=== PATIENT | male | born 1935 | race Caucasian/White ===

== ENCOUNTER 2017-04-11 08:53 | Day surgery (SDC) | payer MEDICARE ==
[2017-03-31 08:43] VITALS: BMI 35.6
[~2017-04-11 08:53] MED LIST: LACTATED RINGERS 1,000 ML IV SCH; LIDOCAINE 1% 20 ML VIAL (10MG/ML) FOR IV START INTRADERMA PRN; ONDANSETRON 4 MG/2 ML VIAL IVP ONE
[2017-04-11] MEDS: CYCLOPENTOLATE 1% OPHTH SOLN 2 ML BTL OP ONE ×3 (09:46→10:02)
[2017-04-11] MEDS: FLURBIPROFEN 0.03% OPHTH DROPS 2.5 ML BTL OP ONE ×3 (09:49→10:05)
[2017-04-11] MEDS: PHENYLEPHRINE 10% OPHTH DROPS 5 ML BTL OP ONE ×2 (09:51→10:08)
[2017-04-11 10:01] LABS: Glucose,Whole Blood 163 mg/dL (75-99)
[2017-04-11 10:05] VITALS: RESP 18; TEMP 97.7
[2017-04-11] MEDS ORDERED: EPINEPHrine (PF) 0.5 ML in BALANCED SALT IRRIG SOLN COMB2 500 ML IRRIGATION ONE (10:38)
[2017-04-11] MEDS ORDERED: PROPOFOL 10 MG/ML 20 ML VIAL IV ONE (10:38)
[2017-04-11] MEDS ORDERED: HYALURONATE SODIUM INTRAOCULAR 1 EACH SYRINGE (10MG/ML) INTRAOCULA ONE (10:46)
[2017-04-11] MEDS ORDERED: BALANCED SALT IRRIG SOLN COMB2 15 ML IRRIG.SOLN INTRAOCULA ONE (10:46)
[2017-04-11] MEDS ORDERED: TETRACAINE 0.5% OPHTH (PF) DROPS 4 ML BTL RIGHT EYE ONE (10:47)
--- NOTE | 2017-04-11 10:58 | P.OP ---
Date of Procedure: 04/11/17 Procedure(s) Performed: PREOPERATIVE DIAGNOSIS: Cataract, right eye. POSTOPERATIVE DIAGNOSIS: Cataract, right eye. OPERATION: Phacoemulsification cataract, right eye. DESCRIPTION OF PROCEDURE: The patient was taken to the preoperative holding area. Intravenous Propofol was given so as to bring about adequate sedation. The following mixture was given for local anesthesia: 5 mL of 2% lidocaine, 5 mL of 0.75% Marcaine, and 1 mL of Wydase. Approximately 4 mL was injected in the retrobulbar space of the surgical eye. Additional 1 mL was then directed to the temporal area of the surgical eye. This was performed to allow adequate neurological block of the facial muscles. The patient was revived and then taken into the operative room. The patient was prepped and draped in the usual sterile manner for the operative eye. A lid speculum was put into position. The conjunctiva was resected back from the limbus in the 12 o'clock position. Bleeding was controlled with electrocautery. A #69 blade was then used and a half-thickness scleral incision approximately 1-mm posterior to the limbus was made on bare sclera. This was shelved in the clear cornea using a crescent knife. Next a 15-degree blade was used to make a stab incision at the 3 o' clock position at the corneolimbal interface. Keratome blade was then used and the superior wound was extended into the anterior chamber. Viscoelastic was injected into the anterior chamber and to maintain its form. Next, a cystotome was used and a continuous anterior capsulotomy was made without difficulty. Hydrodissection using a blunt cannula and BSS was performed. Phaco probe was then employed and a groove extending from 12 to 6 o'clock in the lens was created. A Jose wand was used through the stab incision so as to perform a divide and conquer technique. Next an irrigation aspiration probe was utilized and any residual cortex was removed from the eye. Again, viscoelastic was injected into the anterior chamber. An Kieran posterior chamber lens implant was placed in the cartridge and injected into the anterior chamber without difficulty. The [email or web address] hook was utilized to spin the lens into position and this was again performed without any difficulty. The irrigation and aspiration probe was again employed and any residual viscoelastic was removed from the eye. Then BSS was injected into the limbal stab incision and the anterior chamber re-inflated. The conjunctiva was reapproximated using electrocautery. One drop of 0.25% Timoptic was placed over the corneal along with TobraDex ophthalmic ointment. Two sterile patches and a Morley eye shield were taped into position. The patient was transported to the recovery room in stable condition. Pathology: none sent Condition: stable Disposition: same day
[2017-04-11 11:19] VITALS: BP 173/81; PULSE 72
[2017-04-11] MEDS ORDERED: BUPIVACAINE (PF) 0.75% 5 ML, HYALURONIDASE, HUMAN RECOMB 150 UNIT, LIDOCAINE 2% (PF) 10... MISCELLANE ONE ×3 (23:00)
[2017-04-11] MEDS ORDERED: GENTAMICIN/PREDNISOL AC OPHTH OINT 3.5GM OPHTHALMIC ONE (23:00)
[2017-04-11] MEDS ORDERED: TIMOLOL 0.5% OPHTH SOLN (PF) 0.2 ML DROPERETTE OP ONE (23:00)
== END 2017-04-11 11:34 | disposition home or self-care (01) ==
LOC: OR 08:53
PROVIDERS: ATTEND Ophthalmology
DX: E11.36 Type 2 diabetes mellitus with diabetic cataract (principal); Z79.84 Long term (current) use of oral hypoglycemic drugs; I10 Essential (primary) hypertension; F17.200 Nicotine dependence, unspecified, uncomplicated; E07.9 Disorder of thyroid, unspecified; F41.9 Anxiety disorder, unspecified; Z79.899 Other long term (current) drug therapy
CPT/HCPCS: 66984; V2632; J3470; J2001; J0171; J2704

== ENCOUNTER 2021-09-06 14:00 | Inpatient (IN) | payer MEDICARE ==
--- NOTE | 2021-09-06 18:01 | ED ---
SOB HPI - General Chief Complaint: Shortness of Breath Stated Complaint: Fluid in Lungs Time Seen by Provider: 09/06/21 17:45 Source: patient, family, RN notes reviewed, old records reviewed Mode of arrival: ambulatory Limitations: no limitations - History of Present Illness Initial Comments: 85-year-old male presents to the emergency room with complaints of 3 weeks of worsening shortness of breath and intermittent chest tightness. Patient states that his shortness of breath gets worse with exertion, resolves with rest. He has a dry cough. Denies any fevers, no nausea vomiting or diarrhea. Denies any diaphoresis. States that he was seen at [facility] and then told to come to the emergency room for a right pleural effusion. He states he had EKG and blood work done at that time. Patient states that this has not happened to him before. He states he does take metformin and an antihypertensive. MD Complaint: shortness of breath, chest pain -: week(s) (3) Severity scale (1-10): 0 Quality: other (tightness) Consistency: intermittent Improves With: nothing Worsens With: exertion Associated Symptoms: chest pain (Intermittent) Treatments Prior to Arrival: other (Seen at [facility], EKG lab work and chest x-ray were completed he was directed to come here) - Related Data Home Oxygen Therapy: No Home Medications Medication Instructions Recorded Confirmed metFORMIN HCL [Glucophage] 1,000 mg PO BID 01/13/17 09/06/21 lisinopriL [Zestril] 5 mg PO DAILY 09/06/21 09/06/21 Allergies Allergy/AdvReac Type Severity Reaction Status Date / Time No Known Allergies Allergy Verified 09/06/21 21:21 Review of Systems ROS Statement: Those systems with pertinent positive or pertinent negative responses have been documented in the HPI. ROS Other: All systems not noted in ROS Statement are negative. Past Medical History Past Medical History: Cancer, Eye Disorder, Hypertension Additional Past Medical History / Comment(s): skin cancer on nose, cataract rt eye History of Any Multi-Drug Resistant Organisms: None Reported Past Surgical History: Cholecystectomy Additional Past Surgical History / Comment(s): colonoscopy Past Anesthesia/Blood Transfusion Reactions: No Reported Reaction Past Psychological History: No Psychological Hx Reported Smoking Status: Never smoker Past Alcohol Use History: Rare Past Drug Use History: None Reported - Past Family History Mother Family Medical History: Cancer General Exam Limitations: no limitations General appearance: alert, in no apparent distress Head exam: Present: atraumatic, normocephalic Eye exam: Absent: scleral icterus, conjunctival injection, periorbital swelling ENT exam: Present: mucous membranes moist Neck exam: Present: normal inspection, full ROM. Absent: tenderness, meningismus Respiratory exam: Present: decreased breath sounds (Diminished lung sounds on the right). Absent: respiratory distress, wheezes, rales, rhonchi, stridor, chest wall tenderness, accessory muscle use Cardiovascular Exam: Present: regular rate GI/Abdominal exam: Present: soft. Absent: tenderness, rigid Extremities exam: Present: normal capillary refill. Absent: tenderness, pedal edema, calf tenderness Back exam: Absent: tenderness, CVA tenderness (R), CVA tenderness (L), rash note d Neurological exam: Present: alert, oriented X3 Psychiatric exam: Present: normal affect, normal mood Skin exam: Present: warm, dry, normal color. Absent: cyanosis, diaphoretic, petechiae, pallor Course Vital Signs 09/06/21 09/06/21 14:09 20:17 Temperature 97.8 F 98.3 F Pulse Rate 82 79 Respiratory 18 19 Rate Blood Pressure 179/95 160/111 O2 Sat by Pulse 93 L 94 L Oximetry Medical Decision Making - Medical Decision Making Patient presents with 3 weeks of shortness of breath worse with exertion and occasional chest tightness. His pulse ox is 88% on room air upon arrival to the emergency room. He was placed on 2 L nasal cannula and oxygen saturation increased to 93%. There is minimal air movement on the right. Chest x-ray done at urgent care today showed a right-sided pleural effusion. Patient's labs show no evidence of leukocytosis. His d-dimer is elevated at 2.22. CT angiogram chest shows very large right pleural effusion. Extensive atelectasis in the right lung, with almost complete hydrothorax. No evidence of pulmonary embolism. No hilar masses or pericardial effusion. There is enlargement of the right thyroid lobe with large retrosternal goiter and tracheal deviation to the left side. Patient was also given multiple doses of hydralazine for hypertension. I did contact Dr. Rankin with pulmonology to discuss case. Patient will be admitted to the hospital. Patient is agreeable to this plan of care. - Lab Data Result diagrams: 09/06/21 18:24 09/06/21 18:24 Lab Results 09/06/21 09/06/21 09/06/21 Range/Units 18:24 18:24 18:24 WBC 7.0 (3.8-10.6) k/uL RBC 4.75 (4.30-5.90) m/uL Hgb 13.3 (13.0-17.5) gm/dL Hct 41.8 (39.0-53.0) % MCV 88.1 (80.0-100.0) fL MCH 27.9 (25.0-35.0) pg MCHC 31.7 (31.0-37.0) g/dL RDW 13.0 (11.5-15.5) % Plt Count 234 (150-450) k/uL MPV 7.6 Neutrophils % 72 % Lymphocytes % 16 % Monocytes % 7 % Eosinophils % 3 % Basophils % 2 % Neutrophils # 5.0 (1.3-7.7) k/uL Lymphocytes # 1.1 (1.0-4.8) k/uL Monocytes # 0.5 (0-1.0) k/uL Eosinophils # 0.2 (0-0.7) k/uL Basophils # 0.1 (0-0.2) k/uL PT 11.7 (9.0-12.0) sec INR 1.1 (<1.2) APTT 28.1 (22.0-30.0) sec D-Dimer 2.22 H (<0.60) mg/L FEU Sodium 135 L (137-145) mmol/L Potassium 4.6 (3.5-5.1) mmol/L Chloride 99 (98-107) mmol/L Carbon Dioxide 28 (22-30) mmol/L Anion Gap 8 mmol/L BUN 14 (9-20) mg/dL Creatinine 0.87 (0.66-1.25) mg/dL Est GFR (CKD-EPI)AfAm >90 (>60 ml/min/1.73 sqM) Est GFR (CKD-EPI)NonAf 80 (>60 ml/min/1.73 sqM) Glucose 114 H (74-99) mg/dL Plasma Lactic Acid [place] (0.7-2.0) mmol/L Calcium 8.5 (8.4-10.2) mg/dL Magnesium 1.9 (1.6-2.3) mg/dL Total Bilirubin 0.8 (0.2-1.3) mg/dL AST 29 (17-59) U/L ALT 13 (4-49) U/L Alkaline Phosphatase 60 (38-126) U/L Troponin I (0.000-0.034) ng/mL NT-Pro-B Natriuret Pep pg/mL Total Protein 7.8 (6.3-8.2) g/dL Albumin 4.3 (3.5-5.0) g/dL Coronavirus (PCR) (Not Detectd) 09/06/21 09/06/21 09/06/21 Range/Units 18:24 18:24 18:24 WBC (3.8-10.6) k/uL RBC (4.30-5.90) m/uL Hgb (13.0-17.5) gm/dL Hct (39.0-53.0) % MCV (80.0-100.0) fL MCH (25.0-35.0) pg MCHC (31.0-37.0) g/dL RDW (11.5-15.5) % Plt Count (150-450) k/uL MPV Neutrophils % % Lymphocytes % % Monocytes % % Eosinophils % % Basophils % % Neutrophils # (1.3-7.7) k/uL Lymphocytes # (1.0-4.8) k/uL Monocytes # (0-1.0) k/uL Eosinophils # (0-0.7) k/uL Basophils # (0-0.2) k/uL PT (9.0-12.0) sec INR (<1.2) APTT (22.0-30.0) sec D-Dimer (<0.60) mg/L FEU Sodium (137-145) mmol/L Potassium (3.5-5.1) mmol/L Chloride (98-107) mmol/L Carbon Dioxide (22-30) mmol/L Anion Gap mmol/L BUN (9-20) mg/dL Creatinine (0.66-1.25) mg/dL Est GFR (CKD-EPI)AfAm (>60 ml/min/1.73 sqM) Est GFR (CKD-EPI)NonAf (>60 ml/min/1.73 sqM) Glucose (74-99) mg/dL Plasma Lactic Acid [place] 1.1 (0.7-2.0) mmol/L Calcium (8.4-10.2) mg/dL Magnesium (1.6-2.3) mg/dL Total Bilirubin (0.2-1.3) mg/dL AST (17-59) U/L ALT (4-49) U/L Alkaline Phosphatase (38-126) U/L Troponin I <0.012 (0.000-0.034) ng/mL NT-Pro-B Natriuret Pep 174 pg/mL Total Protein (6.3-8.2) g/dL Albumin (3.5-5.0) g/dL Coronavirus (PCR) (Not Detectd) 09/06/21 Range/Units 19:18 WBC (3.8-10.6) k/uL RBC (4.30-5.90) m/uL Hgb (13.0-17.5) gm/dL Hct (39.0-53.0) % MCV (80.0-100.0) fL MCH (25.0-35.0) pg MCHC (31.0-37.0) g/dL RDW (11.5-15.5) % Plt Count (150-450) k/uL MPV Neutrophils % % Lymphocytes % % Monocytes % % Eosinophils % % Basophils % % Neutrophils # (1.3-7.7) k/uL Lymphocytes # (1.0-4.8) k/uL Monocytes # (0-1.0) k/uL Eosinophils # (0-0.7) k/uL Basophils # (0-0.2) k/uL PT (9.0-12.0) sec INR (<1.2) APTT (22.0-30.0) sec D-Dimer (<0.60) mg/L FEU Sodium (137-145) mmol/L Potassium (3.5-5.1) mmol/L Chloride (98-107) mmol/L Carbon Dioxide (22-30) mmol/L Anion Gap mmol/L BUN (9-20) mg/dL Creatinine (0.66-1.25) mg/dL Est GFR (CKD-EPI)AfAm (>60 ml/min/1.73 sqM) Est GFR (CKD-EPI)NonAf (>60 ml/min/1.73 sqM) Glucose (74-99) mg/dL Plasma Lactic Acid [place] (0.7-2.0) mmol/L Calcium (8.4-10.2) mg/dL Magnesium (1.6-2.3) mg/dL Total Bilirubin (0.2-1.3) mg/dL AST (17-59) U/L ALT (4-49) U/L Alkaline Phosphatase (38-126) U/L Troponin I (0.000-0.034) ng/mL NT-Pro-B Natriuret Pep pg/mL Total Protein (6.3-8.2) g/dL Albumin (3.5-5.0) g/dL Coronavirus (PCR) Not Detected (Not Detectd) - EKG Data EKG shows normal: sinus rhythm (Sinus rhythm with first-degree block [place] interval 0.239, QRS 0.91, QTC 0.423; ventricular rate of 72) Disposition Clinical Impression: Pleural effusion, Goiter, Elevated d-dimer, Hypoxia, Hypertension Disposition: ADMITTED IP TO THIS [facility] Decision Date: 09/06/21 Decision Time: 20:37
[2021-09-06] MEDS ORDERED: FUROSEMIDE 10 MG/ML 4 ML VIAL IV STA (18:17)
[2021-09-06 18:52] LABS: Basophils # (A) 0.1 k/uL (0-0.2); Basophils % (A) 2 %; Eosinophils # (A) 0.2 k/uL (0-0.7); Eosinophils % (A) 3 %; HCT 41.8 % (39.0-53.0); HGB 13.3 gm/dL (13.0-17.5); Lymphocytes # (A) 1.1 k/uL (1.0-4.8); Lymphocytes % (A) 16 %; MCH 27.9 pg (25.0-35.0); MCHC 31.7 g/dL (31.0-37.0); MCV 88.1 fL (80.0-100.0); Mean Platelet Volume 7.6; Monocytes # (A) 0.5 k/uL (0-1.0); Monocytes % (A) 7 %; Neutrophils % (A) 72 %; Platelet Count 234 k/uL (150-450); RBC 4.75 m/uL (4.30-5.90)
[2021-09-06 19:02] LABS: ALT 13 U/L (4-49); African American GFR (CKD) >90 (>60 ml/min/1.73 sqM); Albumin 4.3 g/dL (3.5-5.0); Anion Gap 8 mmol/L; Blood Urea Nitrogen 14 mg/dL (9-20); Calcium 8.5 mg/dL (8.4-10.2); Carbon Dioxide 28 mmol/L (22-30); Chloride 99 mmol/L (98-107); Glucose 114 mg/dL (74-99); Non-African American GFR(CKD) 80 (>60 ml/min/1.73 sqM); Sodium 135 mmol/L (137-145); Total Bilirubin 0.8 mg/dL (0.2-1.3); Total Protein 7.8 g/dL (6.3-8.2)
[2021-09-06 19:05] LABS: INR 1.1 (<1.2); Partial Thromboplastin Time 28.1 sec (22.0-30.0); Prothrombin Time 11.7 sec (9.0-12.0)
[2021-09-06 19:18] LABS: AST 29 U/L (17-59); Alkaline Phosphatase 60 U/L (38-126); Magnesium 1.9 mg/dL (1.6-2.3); Potassium 4.6 mmol/L (3.5-5.1)
--- NOTE | 2021-09-06 20:13 | CT ---
EXAMINATION TYPE: CT chest angio for PE DATE OF EXAM: 09/06/2021 COMPARISON: None HISTORY: SOB CT DLP: 607.2 mGycm Automated exposure control for dose reduction was used. CONTRAST: Performed with IV Contrast, patient injected with 100 mL of Isovue 370. Images obtained from the thoracic inlet to the diaphragm with IV contrast. There are 3-D post process ed images. There is a very large right pleural effusion. There is extensive atelectasis in the right lung. There is enlargement of the right thyroid lobe with heterogeneous density. No mediastinal adenopathy. Ther e are no hilar masses. Heart is not grossly enlarged. No pericardial effusion. The left lung is fairly clear. Thoracic aorta is intact. No aneurysm or dissection. There is no evidence of filling defect in the pulmonary arteries. The thoracic spine is intact. No compression fracture. The sternum is intact. IMPRESSION: Very large right pleural effusion with significant atelectasis of the right lung. There is almost com plete hydrothorax. Large retrosternal goiter with tracheal deviation to the left side. No evidence of pulmonary embolism.
[2021-09-06] MEDS ORDERED: hydrALAZINE HCL 20 MG/ML 1 ML VIAL IVP STA ×2 (20:34→21:58)
[2021-09-06] MEDS ORDERED: NALOXONE 0.4 MG/ML 1 ML VIAL IV PRN (20:57)
[2021-09-06] MEDS ORDERED: ACETAMINOPHEN TAB 325 MG TAB PO PRN (21:02)
[2021-09-06] MEDS ORDERED: SODIUM CHLORIDE 0.9% 1,000 ML IV SCH (21:15)
[2021-09-06] MEDS ORDERED: metFORMIN 500 MG TAB PO SCH (22:00)
[2021-09-07] MEDS ORDERED: hydrALAZINE HCL 25 MG TAB PO ONE (03:00)
--- NOTE | 2021-09-07 03:03 | P.HPIM ---
History of Present Illness H&P Date: 09/06/21 The patient is an 85-year-old male with a PMH of hypertension and type II DM who presents to the emergency room with complaints of gradually worsening dyspnea on exertion. The patient reports that over the past 3 weeks, he has noticed significantly diminishing exercise tolerance. He reports being very active at baseline, cutting firewood and walking for several hours on a daily basis, but states that over the past 3 weeks, he is unable to perform the above activities as he gets winded quickly. He also reports dysphagia during this time, with feeling of food bolus stuck in his throat. Reports having lost 6 pounds of weight in the last few months intentionally. Denied experiencing chest pain, nausea, vomiting, diaphoresis, cough, fever, chills. EKG in the emergency room revealed sinus rhythm with first-degree AV block with no ST/T-wave changes noted as reviewed by me. Chest CTA revealed a very large right-sided pleural effusion with significant atelectasis of the right lung with an almost complete hydrothorax as well as a large retrosternal goiter with tracheal deviation to the left side with no evidence of PE. Patient denied any history of thyroid issues. Patient is a lifelong nonsmoker. Review of systems: Pertinent positives and negatives as discussed in HPI, a complete review of systems was performed and all other systems are negative. Physical examination: General: non toxic, no distress, appears at stated age, obese Derm: no unusual rashes/lesions, warm Head: atraumatic, normocephalic, symmetric Eyes: EOMI, no lid lag, anicteric sclera, pupils equal round reactive to light ENT: Nose and ears atraumatic Neck: No cervical lymphadenopathy, minimal tracheal deviation of the left, no large palpable thyroid nodules appreciated, supple Mouth: no lip lesion, mucus membranes moist Cardiovascular: S1S2 reg, no murmur, positive dorsalis pedis pulse bilateral, no edema Lungs: Severely diminished right-sided lung sounds, left lung clear to auscultation with no wheezing, no accessory muscle use Abdominal: soft, nontender to palpation, no guarding Ext: muscle strength 5 out of 5 in all 4 extremities grossly, no gross muscle atrophy, no contractures, Neuro: CN II-XI grossly intact, no gross focal neuro deficits Psych: Alert, oriented, appropriate affect Assessment/plan Shortness of breath suspected secondary to large right-sided pleural effusion -Pulmonary consulted for diagnostic and therapeutic thoracentesis Nodular goiter with left-sided tracheal deviation and mild dysphagia -Obtain thyroid studies and thyroid US -Consider thyroid uptake studies if euthyroid -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 Chronic conditions: Type II DM, hypertension -Insulin sliding scale blood glucose monitoring -Continue with home antihypertensives DVT prophylaxis -Lovenox The patient is admitted with an anticipated greater than 2 midnight stay for evaluation of CODE STATUS: Full Code Discussed with: Patient Anticipated discharge date: 09/[address]: Home Past Medical History Past Medical History: Cancer, Eye Disorder, Hypertension Additional Past Medical History / Comment(s): skin cancer on nose, cataract rt eye History of Any Multi-Drug Resistant Organisms: None Reported Past Surgical History: Cholecystectomy Additional Past Surgical History / Comment(s): colonoscopy Past Anesthesia/Blood Transfusion Reactions: No Reported Reaction Past Psychological History: No Psychological Hx Reported Smoking Status: Never smoker Past Alcohol Use History: Rare Past Drug Use History: None Reported - Past Family History Mother Family Medical History: Cancer Medications and Allergies Home Medications Medication Instructions Recorded Confirmed Type metFORMIN HCL [Glucophage] 1,000 mg PO BID 01/13/17 09/06/21 History lisinopriL [Zestril] 5 mg PO DAILY 09/06/21 09/06/21 History Allergies Allergy/AdvReac Type Severity Reaction Status Date / Time No Known Allergies Allergy Verified 09/06/21 21:21 Physical Exam Vitals: Vital Signs Temp Pulse Resp BP Pulse Ox 09/06/21 23:00 79 20 161/76 96 09/06/21 22:42 75 22 181/82 98 09/06/21 21:58 75 20 188/100 97 09/06/21 20:17 98.3 F 79 19 160/111 94 L 09/06/21 14:09 97.8 F 82 18 179/95 93 L Intake and Output 09/06/21 09/06/21 09/07/21 14:59 22:59 06:59 Other: Weight 115.212 kg Results CBC & Chem 7: 09/06/21 18:24 09/06/21 18:24 Labs: Abnormal Lab Results - Last 24 Hours (Table) 09/06/21 09/06/21 Range/Units 18:24 18:24 D-Dimer 2.22 H (<0.60) mg/L FEU Sodium 135 L (137-145) mmol/L Glucose 114 H (74-99) mg/dL
[2021-09-07] MEDS: INSULIN ASPART (NovoLOG) 100 UNIT/ML VIAL SQ SCH ×4 (08:37→20:37)
--- NOTE | 2021-09-07 08:41 | US ---
EXAMINATION TYPE: US thyroid st tissue head/neck DATE OF EXAM: 09/07/2021 COMPARISON: NONE CLINICAL HISTORY: Multinodular goiter. multinodular goiter GLAND SIZE: Right Lobe: 6.4 x 3.7 x 3.6 cm Overall Parenchyma: heterogenous Left Lobe: 3.9 x 1.3 x 1.2 cm Overall Parenchyma: homogeneous Isthmus Thickness: .5 cm NODULES 1 RIGHT: # of nodules measured on right: 1 1. 2.6 X 3.3 x 2.2 cm, lower medial, cystic or almost completely cystic, anechoic nodule, which is wider than tall, with smooth margins, without echogenic foci. Prior size: no prior LEFT: # of nodules measured on left: 0 ISTHMUS: # of nodules measured in the isthmus: 0 Bilateral neck scanned, no evidence of lymphadenopathy. IMPRESSION: Right and thyroid enlargement with heterogeneity can be associated with thyroiditis. 2.6 cm cyst righ t thyroid. 2017 ACR TI-RADS LEVEL: TR-RADS 1 - BENIGN: No FNA *Highest TI-RADS level nodule reported
[2021-09-07] MEDS: lisinopriL 5 MG TAB PO SCH (09:08)
[2021-09-07] MEDS: ENOXAPARIN 40 MG/0.4 ML SYRINGE SQ SCH (09:08)
--- NOTE | 2021-09-07 10:32 | P.CNPUL ---
History of Present Illness Consult date: 09/07/21 Requesting physician: Avril Ramos Reason for consult: dyspnea, hypoxemia, pleural effusion, abnormal CXR/CT Chief complaint: Shortness of breath 3 weeks. History of present illness: Pulmonary/critical care consultation, 09/07/2021. This is an 85-year-old male presents to the emergency room on September 06 complaining of 3 weeks worth of increasing and progressive shortness of breath. His shortness of breath is worse on exertion, better at rest. The patient really denies any chest pain or chest discomfort. There is no fever, or chills. He denies any abdominal pain, nausea, vomiting, or diarrhea. The patient does have a bit of a cough, but it is dry and nonproductive. The patient apparently was seen at [facility], had a CAT scan done, and was told to come here to be evaluated. The patient has a history of hypertension and diabetes. The patient denies ever having issues with shortness of breath, and or fluid on the lungs. The patient is a lifelong nontobacco user. He has a bit of skin cancer on his nose, and a right-sided cataract. Other than that, the patient is relatively healthy. CBC is completely normal. D-dimer is elevated at 2.2 to. Comprehensive metabolic profile, is mostly within normal range. Thyroid function, is normal, and testing for coronavirus was negative. CT angiogram showed no evidence of pulmonary embolism. There is a very large right pleural effusion, significant right lung atelectasis. 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 Review of Systems REVIEW OF SYSTEMS: CONSTITUTIONAL: [Negative.] NEUROLOGIC: [ Negative.] HEENT: [ Negative.] CARDIAC: [Negative.] PULMONARY: Progressive shortness of breath, and dry nonproductive cough. GI: [Negative.] : [Negative.] RHEUMATOLOGIC: [ Negative.] IMMUNOLOGIC: [ Negative.] ENDOCRINE: [Negative. ] DERMATOLOGIC: [Negative.] Past Medical History Past Medical History: Cancer, Diabetes Mellitus, Eye Disorder, Hypertension Additional Past Medical History / Comment(s): skin cancer on nose, cataract rt eye History of Any Multi-Drug Resistant Organisms: None Reported Past Surgical History: Appendectomy, Cholecystectomy Additional Past Surgical History / Comment(s): colonoscopy, cyst removal from back Past Anesthesia/Blood Transfusion Reactions: No Reported Reaction Past Psychological History: No Psychological Hx Reported Smoking Status: Never smoker Past Alcohol Use History: Rare Additional Past Alcohol Use History / Comment(s): smoked 30 years ago for a brief time Past Drug Use History: None Reported - Past Family History Mother Family Medical History: Cancer Medications and Allergies Home Medications Medication Instructions Recorded Confirmed Type metFORMIN HCL [Glucophage] 1,000 mg PO BID 01/13/17 09/06/21 History lisinopriL [Zestril] 5 mg PO DAILY 09/06/21 09/06/21 History Allergies Allergy/AdvReac Type Severity Reaction Status Date / Time No Known Allergies Allergy Verified 09/06/21 21:21 Physical Exam Osteopathic Statement: *. No significant issues noted on an osteopathic structural exam other than those noted in the History and Physical/Consult. Vitals: Vital Signs Temp Pulse Pulse Resp BP BP Pulse Ox 09/07/21 08:00 98.3 F 84 15 165/77 96 09/07/21 05:39 98 F 84 16 192/91 96 09/07/21 04:04 98.3 F 76 20 178/82 97 09/07/21 02:21 98.2 F 84 18 185/83 96 09/07/21 00:00 76 20 167/83 97 09/06/21 23:00 79 20 161/76 96 09/06/21 22:42 75 22 181/82 98 09/06/21 21:58 75 20 188/100 97 09/06/21 20:17 98.3 F 79 19 160/111 94 L 09/06/21 14:09 97.8 F 82 18 179/95 93 L Intake and Output 09/06/21 09/07/21 09/07/21 22:59 06:59 14:59 Intake Total 200 Balance 200 Intake: Oral 200 Other: Voiding Method Urinal # Voids 2 # Bowel Movements 1 Weight 115.212 kg No acute distress, oriented 3. No conversational dyspnea, or use of accessory muscles. HEENT examination is grossly unremarkable. Neck supple. Full range of motion. No adenopathy thyromegaly or neck vein distention. Cardiovascular examination reveals regular rhythm rate. S1-S2 normal. No S3 or S4. No discernible murmur noted. Heart rate 84 bpm. Lungs reveal diminished breath sounds on the right. Normal breath sounds on the left. No wheezes or rhonchi. No crackles. There is dullness on percussion throughout the entire right lung. Abdomen soft bowel sounds are heard. No masses or tenderness. Extremities are intact. No cyanosis clubbing or edema. Skin is without rash or lesion. Neurologic examination is brief but nonfocal. Results - Laboratory Findings CBC and BMP: 09/06/21 18:24 09/06/21 18:24 PT/INR, D-dimer PT 11.7 sec (9.0-12.0) 09/06/21 18:24 INR 1.1 (<1.2) 09/06/21 18:24 D-Dimer 2.22 mg/L FEU (<0.60) H 09/06/21 18:24 Abnormal lab findings: Abnormal Labs 09/06/21 09/06/21 18:24 18:24 D-Dimer 2.22 H Sodium 135 L Glucose 114 H - Diagnostic Findings Chest x-ray: image reviewed CT scan - chest: image reviewed Assessment and Plan Assessment: Large right pleural effusion. Shortness of breath, on exertion, secondary to large right-sided pleural effusion. Substernal goiter. History of hypertension. History of diabetes mellitus. Plan: Plan dated 09/07/2021. The patient will have a ultrasound of the right chest, with markings. We'll plan on doing a thoracentesis, by tomorrow if possible. Additional recommendations and suggestions are forthcoming. Prognosis is guarded. The patient is a lifelong nontobacco user. Other than some shortness of breath on exertion, the patient's not having much in the way of pulmonary complaints. Time with Patient: Greater than 30
--- NOTE | 2021-09-07 11:09 | US ---
EXAMINATION TYPE: US chest DATE OF EXAM: 09/07/2021 COMPARISON: None CLINICAL HISTORY: Right pleural effusion. TECHNIQUE: Targeted ultrasound of the posterior lower right hemithorax EXAM MEASUREMENTS: Right Pleural Effusion pocket size: 6.6 cm Right skin surface to fluid distance: 3.0 cm Right side marked for possible thoracentesis outside the dept. Pulmonologists are able to review the images in the patient?s EMR. IMPRESSIONS: Right pleural effusion
[2021-09-07 11:21] LABS: Glucose,Whole Blood 107 mg/dL (70-110)
--- NOTE | 2021-09-07 11:27 | P.PN ---
Subjective Progress Note Date: 09/07/21 Principal diagnosis: sob Still with sob. Can't lay on his left side. No fevers or chills. No pain. No n/v. Objective - Vital Signs Vital signs: Vital Signs Temp 98.3 F 09/07/21 08:00 Pulse 84 09/07/21 08:00 Resp 15 09/07/21 08:00 BP 165/77 09/07/21 08:00 Pulse Ox 96 09/07/21 08:00 FiO2 Intake & Output 09/06/21 09/07/21 09/07/21 18:59 06:59 18:59 Intake Total 200 Balance 200 Weight 115.212 kg 115.212 kg Intake: Oral 200 Other: Voiding Method Urinal # Voids 2 # Bowel Movements 1 - Exam Constitutional: No acute distress, conversant, pleasant Eyes:Anicteric sclerae, moist conjunctiva, no lid-lag, PERRLA, ENMT: Oropharynx clear, no erythema, exudates Neck: Supple, FROM, no masses, or JVD, No carotid bruits, No thyromegaly Lungs: abscent breath sounds on the right. normal respiratory effort, no accessory muscle use Cardiovascular: Heart regular in rate and rhythm, No murmurs, gallops, or rubs, No peripheral edema Abdominal: Soft, Nontender, no guarding, rebound or rigidity, Normoactive bowel sounds, No hepatomegaly, No splenomegaly, No palpable mass Skin: Normal temperature, tone, texture, turgor, no induration, No subcutaneous nodules, No rash, lesions, No ulcers Extremities: No digital cyanosis, No clubbing, Pedal pulses intact and symmetrical, Radial pulses intact and symmetrical, No calf tenderness Psychiatric: Alert and oriented to person, place and time, appropriate affect, intact judgement Neuro: Muscles Strength 5/5 in all 4 extremities, Sensation to light touch grossly present throughout, Cranial nerves II-XII grossly intact, no focal sensory deficits - Labs CBC & Chem 7: 09/06/21 18:24 09/06/21 18:24 Labs: Abnormal Lab Results - Last 24 Hours (Table) 09/06/21 09/06/21 Range/Units 18:24 18:24 D-Dimer 2.22 H (<0.60) mg/L FEU Sodium 135 L (137-145) mmol/L Glucose 114 H (74-99) mg/dL Assessment and Plan Plan: Shortness of breath suspected secondary to large right-sided pleural effusion -Pulmonary consulted for diagnostic and therapeutic thoracentesis, had U/s marking for thoracentesis Nodular goiter with left-sided tracheal deviation and mild dysphagia -Thyroid US showed right sided thyroid cyst and right thyroid enlargement. -Will likely need thyroid uptake outpatient as he is euthyroid -[employer] eval Chronic conditions: Type II DM, hypertension -Insulin sliding scale blood glucose monitoring -Continue with home antihypertensives DVT prophylaxis -Lovenox CODE STATUS: Full Code Discussed with: Patient Anticipated discharge date: 09/[address]: Home
[2021-09-07 16:17] LABS: Glucose,Whole Blood 126 mg/dL (70-110)
[2021-09-07 20:08] LABS: Glucose,Whole Blood 124 mg/dL (70-110)
[2021-09-08] MEDS ORDERED: hydrALAZINE HCL 25 MG TAB PO STA (02:54)
[2021-09-08] MEDS: INSULIN ASPART (NovoLOG) 100 UNIT/ML VIAL SQ SCH ×5 (07:03→22:15)
[2021-09-08 07:30] LABS: Glucose,Whole Blood 88 mg/dL (70-110)
[2021-09-08] MEDS: amLODIPine 10 MG TAB PO SCH (07:48)
[2021-09-08] MEDS: lisinopriL 5 MG TAB PO SCH (07:48)
[2021-09-08] MEDS: ENOXAPARIN 40 MG/0.4 ML SYRINGE SQ SCH (07:48)
--- NOTE | 2021-09-08 11:15 | XR ---
EXAMINATION TYPE: XR chest 1V portable DATE OF EXAM: 09/08/2021 COMPARISON: 09/06/21 HISTORY: Status post right-sided thoracentesis FINDINGS: No evidence for right-sided pneumothorax. Persistent but somewhat smaller right-sided pleural effusio n and probable underlying infiltrate and/or atelectasis. The left lung is clear. IMPRESSION: No evidence for right-sided pneumothorax in a patient who is status post thoracentesis.
[2021-09-08 11:18] LABS: Glucose,Whole Blood 143 mg/dL (70-110)
--- NOTE | 2021-09-08 12:47 | PCN ---
PROCEDURE NOTE PULMONARY/CRITICAL CARE PROCEDURE NOTE: Right-sided thoracentesis. PREOPERATIVE DIAGNOSIS: Right pleural effusion. POSTOP DIAGNOSIS: Right pleural effusion. OPERATORS: Dr. Rankin and Dr. Irby. Indication: Pleural effusion. A time-out was completed verifying correct patient, procedure, site, positioning , and implant (s) or special equipment if applicable. Ultrasound guidance was used and appropriate fluid pocket was identified and marked. Patient was positioned, prepped and draped in usual sterile fashion. Lidocaine was used to anesthetize the area. A Thoracentesis catheter was introduced into the pleural space and fluid was removed. Blood loss was none. A chest x-ray was ordered to evaluate for pneumothorax. Total Fluid Removed: 1.2 L Color of Fluid: Yellow brown Fluid was sent for appropriate laboratory tests. Patient tolerated the procedure well and there were no complications. 1.2 L fluid removed. The fluid was yellow brown in color. There was no immediate complication. Patient tolerated the procedure well. The fluid will be sent for analysis. The posterior right chest was marked by ultrasound. There was informed consent and universal time-out. MMODL / IJN: [id number] /
--- NOTE | 2021-09-08 12:56 | P.PN ---
Subjective Progress Note Date: 09/08/21 Principal diagnosis: sob Patient is feeling much better after the thoracentesis. 1.2 L taken out from the right chest. Breathing is easier. No pain. Objective - Vital Signs Vital signs: Vital Signs Temp 98 F 09/08/21 07:46 Pulse 80 09/08/21 07:46 Resp 09/08/21 07:46 BP 175/93 09/08/21 07:46 Pulse Ox 96 09/08/21 07:46 FiO2 09/07/21 19:22 Intake & Output 09/07/21 09/08/21 09/08/21 18:59 06:59 18:59 Output Total 100 250 250 Balance -100 -250 -250 Output: Urine 100 250 250 Other: Voiding Method Urinal # Voids 2 - Exam Constitutional: No acute distress, conversant, pleasant Eyes:Anicteric sclerae, moist conjunctiva, no lid-lag, PERRLA, ENMT: Oropharynx clear, no erythema, exudates Neck: Supple, FROM, no masses, or JVD, No carotid bruits, No thyromegaly Lungs: abscent breath sounds on the right. normal respiratory effort, no accessory muscle use Cardiovascular: Heart regular in rate and rhythm, No murmurs, gallops, or rubs, No peripheral edema Abdominal: Soft, Nontender, no guarding, rebound or rigidity, Normoactive bowel sounds, No hepatomegaly, No splenomegaly, No palpable mass Skin: Normal temperature, tone, texture, turgor, no induration, No subcutaneous nodules, No rash, lesions, No ulcers Extremities: No digital cyanosis, No clubbing, Pedal pulses intact and symmetrical, Radial pulses intact and symmetrical, No calf tenderness Psychiatric: Alert and oriented to person, place and time, appropriate affect, intact judgement Neuro: Muscles Strength 5/5 in all 4 extremities, Sensation to light touch grossly present throughout, Cranial nerves II-XII grossly intact, no focal se nsory deficits - Labs CBC & Chem 7: 09/06/21 18:24 09/06/21 18:24 Labs: Abnormal Lab Results - Last 24 Hours (Table) 09/07/21 09/07/21 09/08/21 Range/Units 16:16 19:55 11:17 POC Glucose (mg/dL) 126 H 124 H 143 H (70-110) mg/dL Assessment and Plan Plan: Shortness of breath suspected secondary to large right-sided pleural effusion -Pulmonary consulted, he is s/p large volume thoracentesis, which resulted in removal of 1.2 L of fluids. -Awaiting fluid analysis -Planning bronchoscopy. Nodular goiter with left-sided tracheal deviation and mild dysphagia -Thyroid US showed right sided thyroid cyst and right thyroid enlargement. -Will likely need thyroid uptake outpatient as he is euthyroid Chronic conditions: Type II DM, hypertension -Insulin sliding scale blood glucose monitoring -Continue with home antihypertensives DVT prophylaxis -Lovenox CODE STATUS: Full Code Discussed with: Patient Anticipated discharge date: pending course Anticipated discharge place: Home
--- NOTE | 2021-09-08 15:02 | P.PN ---
Subjective Progress Note Date: 09/08/21 Principal diagnosis: Right pleural effusion This is an 85-year-old male presents to the emergency room on September 06 complaining of 3 weeks worth of increasing and progressive shortness of breath. His shortness of breath is worse on exertion, better at rest. The patient really denies any chest pain or chest discomfort. There is no fever, or chills. He denies any abdominal pain, nausea, vomiting, or diarrhea. The patient does have a bit of a cough, but it is dry and nonproductive. The patient apparently was seen at [facility], had a CAT scan done, and was told to come here to be evaluated. The patient has a history of hypertension and diabetes. The patient denies ever having issues with shortness of breath, and or fluid on the lungs. The patient is a lifelong nontobacco user. He has a bit of skin cancer on his nose, and a right-sided cataract. Other than that, the patient is relatively healthy. CBC is completely normal. D-dimer is elevated at 2.2 to. Comprehensive metabolic profile, is mostly within normal range. Thyroid function, is normal, and testing for coronavirus was negative. CT angiogram showed no evidence of pulmonary embolism. There is a very large right pleural effusion, significant right lung atelectasis. 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 The patient is seen today 09/08/2021 in follow-up on the regular medical floor. He is currently sitting up in bed awake and alert in no acute distress. He is maintaining good O2 saturations in the 90s on 4 L/m per nasal cannula. He is afebrile. Blood glucose 143. Did undergo a right-sided thoracentesis by Dr. Rankin today with 1.2 L of cloudy yellow fluid removed. Cultures and pathology pending. Objective - Vital Signs Vital signs: Vital Signs Temp 97.6 F 09/08/21 14:00 Pulse 84 09/08/21 14:00 Resp 09/08/21 14:00 BP 173/77 09/08/21 14:00 Pulse Ox 94 L 09/08/21 14:00 FiO2 21 09/07/21 19:22 Intake & Output 09/07/21 09/08/21 09/08/21 18:59 06:59 18:59 Output Total 100 250 550 Balance -100 -250 -550 Output: Urine 100 250 550 Other: Voiding Method Urinal # Voids 2 1 - Exam GENERAL EXAM: Alert, pleasant 85-year-old gentleman, on 4 L nasal cannula, comfortable in no apparent distress. HEAD: Normocephalic. EYES: Normal reaction of pupils, equal size. NOSE: Clear with pink turbinates. THROAT: No erythema or exudates. NECK: No masses, no JVD. CHEST: No chest wall deformity. LUNGS: Equal air entry with crackles, diminished in the right lung base. CVS: S1 and S2 normal with no audible murmur, regular rhythm. ABDOMEN: No hepatosplenomegaly, normal bowel sounds, no guarding or rigidity. SPINE: No scoliosis or deformity SKIN: No rashes CENTRAL NERVOUS SYSTEM: No focal deficits, tone is normal in all 4 extremities. EXTREMITIES: There is no peripheral edema. No clubbing, no cyanosis. Peripheral pulses are intact. - Labs CBC & Chem 7: 09/06/21 18:24 09/06/21 18:24 Labs: Abnormal Lab Results - Last 24 Hours (Table) 09/07/21 09/07/21 09/08/21 Range/Units 16:16 19:55 11:17 POC Glucose (mg/dL) 126 H 124 H 143 H (70-110) mg/dL Microbiology - Last 24 Hours (Table) 09/08/21 09:30 Body Fluid Culture - Preliminary Pleural Fluid 09/08/21 09:30 Acid Fast Bacilli Culture - Preliminary Pleural Fluid 09/08/21 09:30 Fungal Culture - Preliminary Pleural Fluid Assessment and Plan Assessment: Large right pleural effusion. Status post right-sided thoracentesis of 1.2 L of cloudy fluid returned on 09/08/2021. Cultures and cytology pending. Shortness of breath, on exertion, secondary to large right-sided pleural effusion. Substernal goiter. History of hypertension. History of diabetes mellitus. Plan: The patient was seen and evaluated Right-sided thoracentesis performed today with 1.2 L of cloudy fluid removed Cultures and pathology pending We will plan on bronchoscopy on 09/10/2021 for further evaluation Titrate down the FiO2 as tolerated We will continue to follow I have personally seen and examined the patient, performed the documentation and the assessment and plan as written. Number of minutes spent on the visit: 10.
[2021-09-08 15:57] LABS: Glucose,Whole Blood 80 mg/dL (70-110)
[2021-09-08 17:30] LABS: Appearance,BF Slightly Cloudy
[2021-09-08 18:08] LABS: Glucose, BF Source Pleural Fluid; Glucose, Body Fluid 112 mg/dL; LDH, Body Fluid Source Pleural Fluid; T. Protein, Body Fluid Source Pleural Fluid; Total Protein, Body Fluid 4950 mg/dL
[2021-09-08 21:08] LABS: Glucose,Whole Blood 134 mg/dL (70-110)
[2021-09-09 06:50] LABS: Glucose,Whole Blood 88 mg/dL (70-110)
[2021-09-09] MEDS: INSULIN ASPART (NovoLOG) 100 UNIT/ML VIAL SQ SCH ×4 (07:01→20:57)
[2021-09-09] MEDS: ENOXAPARIN 40 MG/0.4 ML SYRINGE SQ SCH (08:47)
[2021-09-09] MEDS: amLODIPine 10 MG TAB PO SCH (08:47)
[2021-09-09] MEDS: lisinopriL 5 MG TAB PO SCH (08:47)
[2021-09-09 09:26] LABS: Basophils # (A) 0.08 X 10*3/uL (0.00-0.10); Eosinophils # (A) 0.18 X 10*3/uL (0.04-0.35); Eosinophils % (A) 2.4 %; HCT 40.4 % (39.6-50.0); HGB 12.3 g/dL (13.0-17.0); Immature Grans, Automated 0.3 %; Lymphocytes # (A) 1.45 X 10*3/uL (0.90-5.00); MCH 27.3 pg (27.0-32.0); MCHC 30.4 g/dL (32.0-37.0); MCV 89.8 fL (80.0-97.0); Mean Platelet Volume 10.6 fL (9.5-12.2); Monocytes # (A) 0.83 X 10*3/uL (0.20-1.00); Monocytes % (A) 10.8 %; NRBC Per 100 WBC 0 /100 WBCS (0.0-0.0); Neutrophils # (A) 5.09 X 10*3/uL (1.80-7.70); Neutrophils % (A) 66.5 %; Platelet Count 229 X 10*3/uL (140-440); WBC 7.65 X 10*3/uL (4.50-10.00)
[2021-09-09 10:06] LABS: African American GFR (CKD) 95.7 (60.0-200.0); Albumin 3.5 g/dL (3.8-4.9); Albumin/Globulin Ratio 1.4 (1.60-3.17); BUN/Creat Ratio 18.25 Ratio (12.00-20.00); Blood Urea Nitrogen 14.6 mg/dL (9.0-27.0); Calcium 8.2 mg/dL (8.7-10.3); Globulin 2.5 g/dL (1.6-3.3); Non-African American GFR(CKD) 82.6 (60.0-200.0); Phosphorus 3.6 mg/dL (2.4-5.1); Potassium 4.1 mmol/L (3.5-5.5); Total Bilirubin 0.3 mg/dL (0.30-1.20)
[2021-09-09 11:49] LABS: Glucose,Whole Blood 98 mg/dL (70-110)
--- NOTE | 2021-09-09 11:51 | P.PN ---
Subjective Progress Note Date: 09/09/21 Principal diagnosis: Right pleural effusion This is an 85-year-old male presents to the emergency room on September 06 complaining of 3 weeks worth of increasing and progressive shortness of breath. His shortness of breath is worse on exertion, better at rest. The patient really denies any chest pain or chest discomfort. There is no fever, or chills. He denies any abdominal pain, nausea, vomiting, or diarrhea. The patient does have a bit of a cough, but it is dry and nonproductive. The patient apparently was seen at [facility], had a CAT scan done, and was told to come here to be evaluated. The patient has a history of hypertension and diabetes. The patient denies ever having issues with shortness of breath, and or fluid on the lungs. The patient is a lifelong nontobacco user. He has a bit of skin cancer on his nose, and a right-sided cataract. Other than that, the patient is relatively healthy. CBC is completely normal. D-dimer is elevated at 2.2 to. Comprehensive metabolic profile, is mostly within normal range. Thyroid function, is normal, and testing for coronavirus was negative. CT angiogram showed no evidence of pulmonary embolism. There is a very large right pleural effusion, significant right lung atelectasis. 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 The patient is seen today 09/08/2021 in follow-up on the regular medical floor. He is currently sitting up in bed awake and alert in no acute distress. He is maintaining good O2 saturations in the 90s on 4 L/m per nasal cannula. He is afebrile. Blood glucose 143. Did undergo a right-sided thoracentesis by Dr. Rankin today with 1.2 L of cloudy yellow fluid removed. Cultures and pathology pending. The patient is seen today 09/09/2021 in follow-up on the regular medical floor. He is currently resting comfortably in bed. Maintaining O2 saturations in the 9 0s on 4 L/m per nasal cannula. He did undergo a right-sided thoracentesis yesterday with 1.2 L of cloudy yellow fluid removed. The fluid analysis appears to show exudate in nature with a protein of 4.9. Cytology pending. Follow-up chest x-ray did not reveal any evidence of pneumothorax. Persistent right-sided pleural effusion and possible underlying infiltrate. Left lung is clear. White count 7.6. Hemoglobin 12.3. Platelets 229. Sodium 135. Potassium 4.1. BUN 15. Creatinine 0.8. Objective - Vital Signs Vital signs: Vital Signs Temp 98.3 F 09/09/21 08:23 Pulse 77 09/09/21 08:23 Resp 17 09/09/21 08:23 BP 157/65 09/09/21 08:23 Pulse Ox 94 L 09/09/21 08:23 FiO2 21 09/07/21 19:22 Intake & Output 09/08/21 09/09/21 09/09/21 18:59 06:59 18:59 Intake Total 1080 Output Total 550 Balance 530 Intake: Oral 1080 Output: Urine 550 Other: Voiding Method Urinal Urinal # Voids 1 2 - Exam GENERAL EXAM: Alert, pleasant 85-year-old male patient, on 4 L nasal cannula, comfortable in no apparent distress. HEAD: Normocephalic. EYES: Normal reaction of pupils, equal size. NOSE: Clear with pink turbinates. THROAT: No erythema or exudates. NECK: No masses, no JVD. CHEST: No chest wall deformity. LUNGS: Equal air entry with crackles, diminished in the right lung base. CVS: S1 and S2 normal with no audible murmur, regular rhythm. ABDOMEN: No hepatosplenomegaly, normal bowel sounds, no guarding or rigidity. SPINE: No scoliosis or deformity SKIN: No rashes CENTRAL NERVOUS SYSTEM: No focal deficits, tone is normal in all 4 extremities. EXTREMITIES: There is no peripheral edema. No clubbing, no cyanosis. Peripheral pulses are intact. - Labs CBC & Chem 7: 09/09/21 04:33 09/09/21 04:28 Labs: Abnormal Lab Results - Last 24 Hours (Table) 09/08/21 09/09/21 09/09/21 Range/Units 21:05 04:28 04:33 Hgb 12.3 L (13.0-17.0) g/dL MCHC 30.4 L (32.0-37.0) g/dL Carbon Dioxide 28.0 H (20.0-27.5) mmol/L Anion Gap 9.00 L (10.00-18.00) mmol/L POC Glucose (mg/dL) 134 H (70-110) mg/dL Calcium 8.2 L (8.7-10.3) mg/dL ALT 8 L (10-49) U/L Total Protein 6.0 L (6.2-8.2) g/dL Albumin 3.5 L (3.8-4.9) g/dL Albumin/Globulin Ratio 1.40 L (1.60-3.17) g/dL Microbiology - Last 24 Hours (Table) 09/08/21 09:30 Gram Stain - Preliminary Pleural Fluid Body Fluid Culture - Preliminary 09/08/21 09:30 Acid Fast Bacilli Culture - Preliminary Pleural Fluid 09/08/21 09:30 Fungal Culture - Preliminary Pleural Fluid Assessment and Plan Assessment: Large right pleural effusion. Status post right-sided thoracentesis of 1.2 L of cloudy fluid returned on 09/08/2021. Fluid analysis appears exudative. Cultures and cytology pending. Chest x-ray still showing effusion and some underlying infiltrate/consolidation. We'll plan for bronchoscopy with BAL on 09/10/2021. Shortness of breath, on exertion, secondary to large right-sided pleural effusion. Substernal goiter. History of hypertension. History of diabetes mellitus. Plan: The patient was seen and evaluated Right-sided thoracentesis reveals exudate Cultures and pathology pending We will plan for bronchoscopy tomorrow for further evaluation Titrate down the FiO2 as tolerated We will continue to follow I have personally seen and examined the patient, performed the documentation and the assessment and plan as written. Number of minutes spent on the visit: 10.
--- NOTE | 2021-09-09 15:07 | P.PN ---
Subjective Progress Note Date: 09/09/21 Principal diagnosis: sob Feeling ok. No sob or pain. no fevers. Objective - Vital Signs Vital signs: Vital Signs Temp 98.3 F 09/09/21 08:23 Pulse 77 09/09/21 08:23 Resp 17 09/09/21 08:23 BP 157/65 09/09/21 08:23 Pulse Ox 94 L 09/09/21 13:11 FiO2 21 09/07/21 19:22 Intake & Output 09/08/21 09/09/21 09/09/21 18:59 06:59 18:59 Intake Total 1080 Output Total 550 Balance 530 Intake: Oral 1080 Output: Urine 550 Other: Voiding Method Urinal Urinal # Voids 1 2 - Labs CBC & Chem 7: 09/09/21 04:33 09/09/21 04:28 Labs: Abnormal Lab Results - Last 24 Hours (Table) 09/08/21 09/09/21 09/09/21 Range/Units 21:05 04:28 04:33 Hgb 12.3 L (13.0-17.0) g/dL MCHC 30.4 L (32.0-37.0) g/dL Carbon Dioxide 28.0 H (20.0-27.5) mmol/L Anion Gap 9.00 L (10.00-18.00) mmol/L POC Glucose (mg/dL) 134 H (70-110) mg/dL Calcium 8.2 L (8.7-10.3) mg/dL ALT 8 L (10-49) U/L Total Protein 6.0 L (6.2-8.2) g/dL Albumin 3.5 L (3.8-4.9) g/dL Albumin/Globulin Ratio 1.40 L (1.60-3.17) g/dL Microbiology - Last 24 Hours (Table) 09/08/21 09:30 Gram Stain - Preliminary Pleural Fluid Body Fluid Culture - Preliminary 09/08/21 09:30 Acid Fast Bacilli Culture - Preliminary Pleural Fluid 09/08/21 09:30 Fungal Culture - Preliminary Pleural Fluid Assessment and Plan Plan: Shortness of breath suspected secondary to large right-sided pleural effusion -Pulmonary consulted, he is s/p large volume thoracentesis, which resulted in removal of 1.2 L of fluids. -Pleural fluid showing exudate, cultures and cytology pending -Planning bronchoscopy. Nodular goiter with left-sided tracheal deviation and mild dysphagia -Thyroid US showed right sided thyroid cyst and right thyroid enlargement. -Will likely need thyroid uptake outpatient as he is euthyroid Chronic conditions: Type II DM, hypertension -Insulin sliding scale blood glucose monitoring -Continue with home antihypertensives DVT prophylaxis -Lovenox CODE STATUS: Full Code Discussed with: Patient Anticipated discharge date: tomorrow Anticipated discharge place: Home
[2021-09-09 16:52] LABS: Glucose,Whole Blood 122 mg/dL (70-110)
[2021-09-09 20:52] LABS: Glucose,Whole Blood 103 mg/dL (70-110)
[2021-09-10 07:16] LABS: Glucose,Whole Blood 88 mg/dL (70-110)
[2021-09-10] MEDS: amLODIPine 10 MG TAB PO SCH (07:43)
[2021-09-10] MEDS: INSULIN ASPART (NovoLOG) 100 UNIT/ML VIAL SQ SCH ×2 (07:43→11:29)
[2021-09-10] MEDS: lisinopriL 5 MG TAB PO SCH (07:43)
[2021-09-10] MEDS: ENOXAPARIN 40 MG/0.4 ML SYRINGE SQ SCH (07:44)
[2021-09-10] MEDS ORDERED: LIDOCAINE 2% INJ 20 MG/ML (2 ML VIAL) ONE (11:13)
[2021-09-10] MEDS ORDERED: PROPOFOL 10 MG/ML 20 ML VIAL IV ONE (11:13)
--- NOTE | 2021-09-10 12:47 | P.PN ---
Subjective Progress Note Date: 09/10/21 Principal diagnosis: Right pleural effusion This is an 85-year-old male presents to the emergency room on September 06 complaining of 3 weeks worth of increasing and progressive shortness of breath. His shortness of breath is worse on exertion, better at rest. The patient really denies any chest pain or chest discomfort. There is no fever, or chills. He denies any abdominal pain, nausea, vomiting, or diarrhea. The patient does have a bit of a cough, but it is dry and nonproductive. The patient apparently was seen at [facility], had a CAT scan done, and was told to come here to be evaluated. The patient has a history of hypertension and diabetes. The patient denies ever having issues with shortness of breath, and or fluid on the lungs. The patient is a lifelong nontobacco user. He has a bit of skin cancer on his nose, and a right-sided cataract. Other than that, the patient is relatively healthy. CBC is completely normal. D-dimer is elevated at 2.2 to. Comprehensive metabolic profile, is mostly within normal range. Thyroid function, is normal, and testing for coronavirus was negative. CT angiogram showed no evidence of pulmonary embolism. There is a very large right pleural effusion, significant right lung atelectasis. 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 The patient is seen today 09/08/2021 in follow-up on the regular medical floor. He is currently sitting up in bed awake and alert in no acute distress. He is maintaining good O2 saturations in the 90s on 4 L/m per nasal cannula. He is afebrile. Blood glucose 143. Did undergo a right-sided thoracentesis by Dr. Rankin today with 1.2 L of cloudy yellow fluid removed. Cultures and pathology pending. The patient is seen today 09/09/2021 in follow-up on the regular medical floor. He is currently resting comfortably in bed. Maintaining O2 saturations in the 9 0s on 4 L/m per nasal cannula. He did undergo a right-sided thoracentesis yesterday with 1.2 L of cloudy yellow fluid removed. The fluid analysis appears to show exudate in nature with a protein of 4.9. Cytology pending. Follow-up chest x-ray did not reveal any evidence of pneumothorax. Persistent right-sided pleural effusion and possible underlying infiltrate. Left lung is clear. White count 7.6. Hemoglobin 12.3. Platelets 229. Sodium 135. Potassium 4.1. BUN 15. Creatinine 0.8. Patient is seen today 09/10/2021 in follow-up on the regular medical floor. He is currently resting comfortably in bed. Awake and alert in no acute distress. Maintaining O2 saturations in the 90s on 4 L/m per nasal cannula. He's been afebrile. The plan is for bronchoscopy with BAL today. Pleural fluid cultures and pathology are pending. Glucose 88. Lovenox for DVT prophylaxis. Objective - Vital Signs Vital signs: Vital Signs Temp 98.2 F 09/10/21 07:59 Pulse 70 09/10/21 07:59 Resp 17 09/10/21 08:00 BP 182/82 09/10/21 07:59 Pulse Ox 95 09/10/21 07:59 FiO2 21 09/07/21 19:22 Intake & Output 09/09/21 09/10/21 09/10/21 18:59 06:59 18:59 Intake Total 900 Output Total 500 Balance -500 900 Intake: IV 900 0.9% @75,ls/hr 900 Output: Urine 500 Other: Voiding Method Urinal Urinal # Bowel Movements 1 - Exam GENERAL EXAM: Alert, pleasant 85-year-old gentleman, on 4 L nasal cannula, comfortable in no apparent distress. HEAD: Normocephalic. EYES: Normal reaction of pupils, equal size. NOSE: Clear with pink turbinates. THROAT: No erythema or exudates. NECK: No masses, no JVD. CHEST: No chest wall deformity. LUNGS: Equal air entry with crackles, diminished in the right lung base. CVS: S1 and S2 normal with no audible murmur, regular rhythm. ABDOMEN: No hepatosplenomegaly, normal bowel sounds, no guarding or rigidity. SPINE: No scoliosis or deformity SKIN: No rashes CENTRAL NERVOUS SYSTEM: No focal deficits, tone is normal in all 4 extremities. EXTREMITIES: There is no peripheral edema. No clubbing, no cyanosis. Peripheral pulses are intact. - Labs CBC & Chem 7: 09/09/21 04:33 09/09/21 04:28 Labs: Abnormal Lab Results - Last 24 Hours (Table) 06/23/22 Range/Units 16:50 POC Glucose (mg/dL) 122 H (70-110) mg/dL Microbiology - Last 24 Hours (Table) 09/08/21 09:30 Acid Fast Bacilli Smear - Final Pleural Fluid Acid Fast Bacilli Culture - Preliminary 09/08/21 09:30 Gram Stain - Preliminary Pleural Fluid Body Fluid Culture - Preliminary Assessment and Plan Assessment: Large right pleural effusion. Status post right-sided thoracentesis of 1.2 L of cloudy fluid returned on 09/08/2021. Fluid analysis appears exudative. Cultures and cytology pending. Chest x-ray still showing effusion and some underlying infiltrate/consolidation. Arthroscopy with BAL and brushings performed on 09/10/2021. Cultures and pathology pending. Shortness of breath, on exertion, secondary to large right-sided pleural effusion. Substernal goiter. History of hypertension. History of diabetes mellitus. Plan: The patient was seen and evaluated Pleural fluid reveals exudate Cultures and pathology pending For bronchoscopy and BAL today Titrate down the FiO2 as tolerated We will continue to follow I have personally seen and examined the patient, performed the documentation and the assessment and plan as written. Number of minutes spent on the visit: 10.
[2021-09-10 12:51] VITALS: BP 178/80; PULSE 66; RESP 18; TEMP 97.7
--- NOTE | 2021-09-10 16:15 | P.DS ---
Providers Date of admission: 09/06/21 20:24 Expected date of discharge: 09/10/21 Attending physician: Avril Ramos MD Consults: 09/06/21 21:02 Consult Physician Routine Consulting Provider: Koffi Rankin Consult Reason/Comments: Right pleural effusion Do you want consulting provider notified?: Already Contacted Primary care physician: [facility] [place] Course: 85-year-old male with a PMH of hypertension and type II DM who presents to the emergency room with complaints of gradually worsening dyspnea on exertion. The patient reports that over the past 3 weeks, he has noticed significantly diminishing exercise tolerance. He reports being very active at baseline, cutting firewood and walking for several hours on a daily basis, but states that over the past 3 weeks, he is unable to perform the above activities as he gets winded quickly. He also reports dysphagia during this time, with feeling of food bolus stuck in his throat. Reports having lost 6 pounds of weight in the last few months intentionally. Denied experiencing chest pain, nausea, vomiting, diaphoresis, cough, fever, chills. EKG in the emergency room revealed sinus rhythm with first-degree AV block with no ST/T-wave changes noted as reviewed by me. Chest CTA revealed a very large right-sided pleural effusion with significant atelectasis of the right lung with an almost complete hydrothorax as well as a large retrosternal goiter with tracheal deviation to the left side with no evidence of PE. Patient denied any history of thyroid issues. Patient is a lifelong nonsmoker. Patient was admitted to our service for workup. He was seen by pulmonary who did a thoracentesis which showed exudative pleural fluid with lymphocyte predominance. Today patient had a bronchoscopy which showed extrinsic compression of the right bronchus intermedius. Case was discussed with pulmonary. Patient is stable for discharge currently. He will be discharged on oxygen. He'll need to follow-up with his primary care physician as well as pulmonary in the office. Time for discharge 35 minutes. Plan - Discharge Summary New Discharge Prescriptions: New amLODIPine [Norvasc] 10 mg PO DAILY 30 Days #30 tablet Continue metFORMIN HCL [Glucophage] 1,000 mg PO BID lisinopriL [Zestril] 5 mg PO DAILY Discharge Medication List metFORMIN HCL [Glucophage] 1,000 mg PO BID 01/13/17 [History] lisinopriL [Zestril] 5 mg PO DAILY 09/06/21 [History] amLODIPine [Norvasc] 10 mg PO DAILY 30 Days #30 tablet 09/10/21 [Rx] Follow up Appointment(s)/Referral(s): [facility] [NON-STAFF] - As Needed (oxygen) Crystal Mcbride [Primary Care Provider] - 1-2 days (Office closed, please make follow up appointment next business day )
--- NOTE | 2021-09-10 18:16 | PCN ---
PROCEDURE NOTE PROCEDURE: Bronchoscopy, airway examination, therapeutic lavage and BAL. PREOP DIAGNOSIS: Partial collapse, right lower lobe, right middle lobe. POSTOP DIAGNOSIS: Partial collapse, right lower lobe, right middle lobe. OPERATORS: Dr. Rankin, Dr. Irby. There was informed consent and universal timeout. The patient's procedure took place in room #1 [facility]. DESCRIPTION OF PROCEDURE: Anesthesia provided general anesthesia. After the patient was sedated, being fully monitored, the bronchoscope was inserted through the left nostril. It passed through the left nasopharynx into the oropharynx. The hypopharynx was identified and topicalized. There was minor epistaxis. The patient had a thorough evaluation of hypopharyngeal area, and there was no gross abnormality. Anterior commissure true cords, false cords, arytenoids, right and left vallecula, epiglottis and piriform sinuses right and left, all appeared relatively normal. The glottic opening was topicalized and the bronchoscope was pushed through the glottic opening into the trachea. The trachea appeared to have some mucosal erythema and hyperemia. There was no dominant mass or tumor. The tracheal ernesto itself was sharp. The left side was evaluated first. After topicalization, the left upper lobe proper and its 2 segments, the lingula and its 2 segments and left lower lobe and its 4 segments were all evaluated. There was no dominant mass or tumor. There was no bleeding. The mucosa appeared relatively normal although there was probably some mild bronchitis. On the right side, the right upper lobe and its 3 segments appeared relatively normal. The interesting abnormality was that there was some extrinsic compression of the bronchus intermedius leading into the right middle lobe and right lower lobe. This area was brushed. There was no dominant mass or tumor. Next the bronchoscope was taken down into the right middle lobe to evaluate its 2 segments and the right lower lobe to evaluate its 5 segments. No dominant mass or tumor noted. Next, BAL took place in the area of the bronchus intermedius. This is where we did brushes as well. The patient tolerated the procedure well. The fluid and the brushes will be sent for analysis. The bronchoscope was withdrawn. There was no immediate complication. The patient tolerated the procedure well. The family was advised of the findings at bronchoscopy. MMODL / IJN: [id number] /
== END 2021-09-10 17:08 | disposition home or self-care (01) | DRG 187 ==
LOC: EC 14:00 → 4SSUR 20:24 → 3SCARD 09-07 02:06 → 4SSUR 09-07 02:44
PROVIDERS: ADMIT Internal Medicine; ATTEND Internal Medicine
PROC: 0W993ZZ Drainage of Right Pleural Cavity, Percutaneous Approach (ICD-10-PCS; 2021-09-08)
PROC: 0BDD8ZX Extraction of Right Middle Lung Lobe, Via Natural or Artificial Opening Endoscopic, Diagnostic (ICD-10-PCS; principal; 2021-09-10 11:50)
PROC: 0B938ZZ Drainage of Right Main Bronchus, Via Natural or Artificial Opening Endoscopic (ICD-10-PCS; principal; 2021-09-10 11:50)
PROC: 0BDF8ZX Extraction of Right Lower Lung Lobe, Via Natural or Artificial Opening Endoscopic, Diagnostic (ICD-10-PCS; principal; 2021-09-10 11:50)
DX: J94.8 Other specified pleural conditions (principal); J98.11 Atelectasis; J90 Pleural effusion, not elsewhere classified; E04.8 Other specified nontoxic goiter; R11.0 Nausea; C44.301 Unspecified malignant neoplasm of skin of nose; E11.36 Type 2 diabetes mellitus with diabetic cataract; I10 Essential (primary) hypertension; I44.0 Atrioventricular block, first degree; R09.02 Hypoxemia; R13.10 Dysphagia, unspecified; Z79.84 Long term (current) use of oral hypoglycemic drugs; Z79.899 Other long term (current) drug therapy; Z85.828 Personal history of other malignant neoplasm of skin
CPT/HCPCS: 31623; 31624; 36415; 71045; 71275; 76536; 76604; 80053; 82945; 83605; 83615; 83735; 83880; 84100; 84157; 84443; 84480; 84484; 85025; 85379; 85610; 85730; 87070; 87102; 87116; 87205; 87206; 87252; 87496; 87498; 87502; 87529; 87634; 87635; 87798; 88104; 88108; 88184; 88185; 88305; 88341; 88342; 89050; 93005; 94760; 96361; 96374; 96375; 96376; 99285

== ENCOUNTER → 2021-10-14 | Outpatient (CLI) | payer MEDICARE ==
--- NOTE | 2021-10-14 15:12 | US ---
EXAMINATION TYPE: US chest DATE OF EXAM: 10/14/2021 COMPARISON: Radiographs 10/13/2021 CLINICAL HISTORY: 86-year-old male J90 PLEURAL EFFUSION, NOT ELSEWHERE CLASSIFIED. Doctor Chucho drain ing at 1200 noon today. TECHNIQUE: Targeted ultrasound of the posterior lower right hemithorax FINDINGS: EXAM MEASUREMENTS: Right Pleural Effusion pocket size: 16.5 cm Right skin surface to fluid distance: 1.9 cm Lung tissue visualized 8.3 cm deep in pocket. Right side marked for possible thoracentesis outside the dept. Pulmonologists are able to review the images in the patient?s EMR. IMPRESSIONS: Moderate right-sided pleural effusion with underlying atelectatic lung.
== END | disposition home or self-care (01) ==
LOC: RADUSWWP 10:19
PROVIDERS: ATTEND Internal Medicine Critical Care Medicine
DX: J90 Pleural effusion, not elsewhere classified (principal)
CPT/HCPCS: 76604

== ENCOUNTER → 2021-10-14 | Day surgery (SDC) | payer MEDICARE ==
[~2021-10-14] MED LIST changes: +ATROPINE SULFATE 0.4 MG/ML 1 ML VIAL IM NR; -LACTATED RINGERS 1,000 ML IV SCH; -LIDOCAINE 1% 20 ML VIAL (10MG/ML) FOR IV START INTRADERMA PRN; -ONDANSETRON 4 MG/2 ML VIAL IVP ONE; +SODIUM CHLORIDE 0.9% 500 ML 500 ML in EMPTY BAG 1 BAG IV PRN
[2021-10-14 11:46] VITALS: TEMP 98.1
[2021-10-14 11:52] VITALS: PULSE 86
[2021-10-14 12:32] VITALS: BP 131/74; RESP 18
--- NOTE | 2021-10-14 12:40 | XR ---
EXAMINATION TYPE: XR chest 1V portable DATE OF EXAM: 10/14/2021 Comparison: 09/08/2021 Clinical History: 86-year-old male post right thoracentesis Findings: There is a large convexly marginated edge projecting at the right apex, suspected to represent a skin fold rather than pneumothorax. Patient is slightly rotated towards the right. Right heart margin obs cured by adjacent pleural parenchymal opacity. Moderate to large right pleural effusion persists, pos sibly minimally decreased from prior. Continued small left pleural effusion with left basilar opacity . Impression: 1. The patient's moderate to large right pleural effusion may be minimally smaller. A large convexity marginated edge projecting at the right apex is suspected to represent a large skinfold rather than pneumothorax. Attention on follow-up. 2. Continued small left pleural effusion with adjacent atelectasis and/or consolidation.
--- NOTE | 2021-10-14 14:47 | OP ---
OPERATIVE REPORT PULMONARY/CRITICAL CARE PROCEDURE NOTE: Right-sided thoracentesis. PREOPERATIVE DIAGNOSIS: Right pleural effusion, shortness of breath. Rule out infection versus cancer. POSTOPERATIVE DIAGNOSIS: Right pleural effusion, shortness of breath. Rule out infection versus cancer. PROCEDURE DESCRIPTION: There was informed consent and universal timeout was completed, verifying correct patient, procedure, site, positioning , and implant (s) or special equipment if applicable. The procedure took place on the third [facility]. Ultrasound guidance was used to jenae the right posterior chest and appropriate fluid pocket was identified and marked. Patient was positioned, prepped and draped in usual sterile fashion. Lidocaine was used to anesthetize the area. A thoracentesis catheter was introduced into the pleural space and fluid was removed. Blood loss was none. A chest x-ray was ordered to evaluate for pneumothorax. Total Fluid Removed: Two liters. Color of Fluid: Dark brown. Fluid will be sent for appropriate laboratory tests, including cytology, microbiology and chemistry. Patient tolerated the procedure well and there were no immediate complications. A chest x-ray will be ordered to rule out pneumothorax. There was no immediate complication. The patient tolerated the procedure well. Additional recommendations and suggestions are forthcoming once the fluid has been analyzed and the laboratory data are reviewed. MMODL / IJN: [id number] /
[2021-10-14 20:41] LABS: Appearance,BF Hazy
[2021-10-14 23:14] LABS: Glucose, BF Source Pleural Fluid; Glucose, Body Fluid 94 mg/dL; LDH, Body Fluid Source Pleural Fluid; T. Protein, Body Fluid Source Pleural Fluid; Total Protein, Body Fluid 4840 mg/dL
== END ==
LOC: PROCWHC3 11:38
PROVIDERS: ATTEND Internal Medicine Critical Care Medicine
DX: J90 Pleural effusion, not elsewhere classified (principal); R06.02 Shortness of breath; E11.9 Type 2 diabetes mellitus without complications; I10 Essential (primary) hypertension; Z87.891 Personal history of nicotine dependence; Z79.84 Long term (current) use of oral hypoglycemic drugs; Z79.899 Other long term (current) drug therapy; Z90.49 Acquired absence of other specified parts of digestive tract; Z85.828 Personal history of other malignant neoplasm of skin; Z80.3 Family history of malignant neoplasm of breast
CPT/HCPCS: 88108; 88305; 89050; 87252; 87070; 87205; 87075; 87116; 87102; 87206; 82945; 83615; 84157; 71045; 32554; J0461; J2001; 87496; 87498; 87502; 87529; 87634; 87798

== ENCOUNTER → 2021-10-26 | Outpatient (CLI) | payer MEDICARE ==
--- NOTE | 2021-10-26 11:44 | XR ---
EXAMINATION TYPE: XR chest 2V DATE OF EXAM: 10/26/2021 COMPARISON: 10/14/2021 HISTORY: Shortness of breath TECHNIQUE: Frontal and lateral views of the chest are obtained. FINDINGS: Scattered senescent parenchymal changes noted. Hyperinflation compatible with COPD. Persistent right basilar opacity which may reflect underlying atelectasis and/or effusion. Heart size is stable. Mediastinal structures are stable and grossly unremarkable. No evidence for hilar prominence. Degenerative changes dorsal spine. IMPRESSION: 1. Persistent right basilar opacity which may reflect underlying atelectasis and/or effusion.
--- NOTE | 2021-10-26 12:37 | US ---
EXAMINATION TYPE: US chest DATE OF EXAM: 10/26/2021 COMPARISON: 10/14/2021 CLINICAL HISTORY: J90 Pleural effusion. TECHNIQUE: Targeted ultrasound of the posterior lower bilateral hemithoraces EXAM MEASUREMENTS: Right Pleural Effusion pocket size: 13.0 cm Right skin surface to fluid distance: 3.3 cm Right side marked for possible thoracentesis outside the dept. Left side NOT marked for possible thoracentesis outside the dept. Pulmonologists are able to review the images in the patient?s EMR. IMPRESSIONS: As above
== END | disposition home or self-care (01) ==
LOC: RADUSWWP 10:26
PROVIDERS: ATTEND Internal Medicine Critical Care Medicine
DX: R91.8 Other nonspecific abnormal finding of lung field (principal)
CPT/HCPCS: 71046; 76604

== ENCOUNTER 2021-11-10 08:28 | Day surgery (SDC) | payer MEDICARE ==
[2021-11-10 08:54] VITALS: RESP 16; TEMP 98.5
[2021-11-10 09:12] LABS: Glucose,Whole Blood 102 mg/dL (70-110)
[2021-11-10 09:17] LABS: Mean Platelet Volume 8.3; Platelet Count 239 k/uL (150-450)
[2021-11-10 09:42] LABS: Prothrombin Time 10.8 sec (9.0-12.0)
[2021-11-10 10:20] VITALS: BP 121/66; PULSE 79
--- NOTE | 2021-11-10 10:33 | XR ---
EXAMINATION TYPE: XR chest 1V portable DATE OF EXAM: 11/10/2021 COMPARISON: 10/26/2021 INDICATION: Postthoracentesis TECHNIQUE: Single frontal view of the chest is obtained. FINDINGS: The heart size is upper limits of normal. The pulmonary vasculature is normal. There is a moderate right pleural effusion. This is mildly diminished from comparison. No pneumothora x is evident. Some mild infiltrate may be at the left base is nonspecific. A minimal left pleural eff usion may be present. IMPRESSION: 1. No pneumothorax postthoracentesis. 2. Moderate right pleural effusion slightly diminished from comparison. 3. Small developing left pleural effusion.
--- NOTE | 2021-11-10 12:15 | US ---
Ultrasound-guided therapeutic and diagnostic thoracentesis DATE OF EXAM: 11/10/2021 CLINICAL HISTORY: Right pleural effusion The procedure was discussed with the patient. The risks, complications, benefits, and alternatives we re discussed and any questions were answered. Informed consent was obtained. The patient was placed supine on the ultrasound table and prepped and draped in the usual sterile fas hion. All elements of maximal barrier and sterile technique were utilized. Under ultrasound guidance, access into the pleural space was obtained, via the thoracentesis catheter system and direct ultrasound guidance. Ap proximately 1.6 liters of straw-colored fluid was removed. The patient was stable throughout the procedure and remained stable upon discharge from Department of Radiology. IMPRESSION: 1. Successful therapeutic and diagnostic thoracentesis under ultrasound guidance.
== END 2021-11-10 10:45 | disposition home or self-care (01) ==
LOC: RADPROMAIN 08:28
PROVIDERS: ATTEND Internal Medicine Critical Care Medicine
DX: J90 Pleural effusion, not elsewhere classified (principal)
CPT/HCPCS: 32555; 36415; 71045; 85049; 85610

== ENCOUNTER → 2021-12-14 | Outpatient (CLI) | payer MEDICARE ==
--- NOTE | 2021-12-14 13:52 | XR ---
EXAMINATION TYPE: XR chest 2V DATE OF EXAM: 12/14/2021 COMPARISON: 11/10/2021 HISTORY: Shortness of breath TECHNIQUE: Frontal and lateral views of the chest are obtained. FINDINGS: Moderate to large right-sided pleural effusion is increased slightly. Right basilar infiltrate and/or atelectasis persists. Left lung is clear. Heart size is stable. Mediastinal structures are stable and grossly unremarkable. No evidence for hilar prominence. Degenerative changes dorsal spine. IMPRESSION: 1. Moderate to large right-sided pleural effusion is increased slightly. Right basilar infiltrate and /or atelectasis persists. Left lung is clear.
== END | disposition home or self-care (01) ==
LOC: RADXRMAIN 13:26
PROVIDERS: ATTEND Internal Medicine Critical Care Medicine
DX: J90 Pleural effusion, not elsewhere classified (principal)
CPT/HCPCS: 71046

== ENCOUNTER 2021-12-17 10:35 | Day surgery (SDC) | payer MEDICARE ==
[~2021-12-17 10:35] MED LIST changes: -ATROPINE SULFATE 0.4 MG/ML 1 ML VIAL IM NR
[2021-12-17 11:14] VITALS: RESP 18; TEMP 98.3
[2021-12-17] MEDS ORDERED: ATROPINE SULFATE 0.4 MG/ML 1 ML VIAL IM STA (11:16)
[2021-12-17 12:31] VITALS: BP 131/30; PULSE 81
--- NOTE | 2021-12-17 12:39 | XR ---
EXAMINATION TYPE: XR chest 1V portable DATE OF EXAM: 12/17/2021 HISTORY: Shortness of breath. COMPARISON: None. TECHNIQUE: POST RIGHT THORACENTESIS FINDINGS: Demonstrated are scattered senescent parenchymal change. Persistent right-sided effusion as well as underlying atelectasis and/or infiltrate with slight impro vement. No evidence of pneumothorax status post thoracentesis. The heart is stable. Hilar and mediastinal structures are within normal limits. Degenerative changes are seen of the dorsal spine. IMPRESSION: 1. No evidence of pneumothorax status post thoracentesis.
--- NOTE | 2021-12-17 19:20 | PCN ---
PROCEDURE NOTE This is a Pulmonary/Critical Care procedure note. PROCEDURE PERFORMED: Right-sided thoracentesis. There were informed consent and universal time-out. The posterior chest on the right was marked by ultrasound. INDICATION: Pleural effusion. DESCRIPTION OF PROCEDURE: A time-out was completed verifying correct patient, procedure, site, positioning, and implant(s) or special equipment if applicable. Ultrasound guidance was used, and appropriate fluid pocket was identified and marked. The patient was positioned, prepped and draped in usual sterile fashion. Lidocaine was used to anesthetize the area. A thoracentesis catheter was introduced into the pleural space, and fluid was removed. Blood loss was none. Total fluid removed: 1650 mL of thin yellow fluid was removed from the right pleural space. The patient tolerated the procedure well. The fluid will not be sent for analysis. We have done this before. The patient will have a chest x-ray to rule out pneumothorax. There was no immediate complication. Again, the patient tolerated the procedure well without any major complication or issues. MMODL / IJN: [id number] /
== END 2021-12-17 14:23 | disposition home or self-care (01) ==
LOC: PROCWHC3 10:35
PROVIDERS: ATTEND Internal Medicine Critical Care Medicine
DX: J90 Pleural effusion, not elsewhere classified (principal)
CPT/HCPCS: 71045; 96372; 32554; J0461

== ENCOUNTER → 2021-12-17 | Outpatient (CLI) | payer MEDICARE ==
--- NOTE | 2021-12-17 11:09 | US ---
EXAMINATION TYPE: US chest DATE OF EXAM: 12/17/2021 COMPARISON: 11/10/2021 CLINICAL HISTORY: J90 Pleural effusion. Right side TECHNIQUE: Targeted ultrasound of the posterior lower right hemithorax EXAM MEASUREMENTS: Right Pleural Effusion pocket size: 12.6 cm Right skin surface to fluid distance: 2.7 cm Right side marked for possible thoracentesis outside the dept. Pulmonologists are able to review the images in the patient?s EMR. IMPRESSIONS: As above
== END | disposition home or self-care (01) ==
LOC: RADUSWWP 10:13
PROVIDERS: ATTEND Internal Medicine Critical Care Medicine
DX: J90 Pleural effusion, not elsewhere classified (principal)
CPT/HCPCS: 76604

== ENCOUNTER → 2021-12-31 | Outpatient (CLI) | payer MEDICARE ==
--- NOTE | 2021-12-31 11:49 | US ---
EXAMINATION TYPE: US chest DATE OF EXAM: 12/31/2021 COMPARISON: NONE CLINICAL HISTORY: J90 PLEURAL EFFUSION, NOT ELSEWHERE CLASSIFIED. TECHNIQUE: Targeted ultrasound of the posterior lower right hemithorax EXAM MEASUREMENTS: Right Pleural Effusion pocket size: 11.9 cm Right skin surface to fluid distance: 2.8 cm Loculated fluid pocket Right side marked for possible thoracentesis outside the dept. Pulmonologists are able to review the images in the patient?s EMR. IMPRESSIONS: 1. Right pleural effusion appears loculated.
== END | disposition home or self-care (01) ==
LOC: RADUSWWP 10:09
PROVIDERS: ATTEND Internal Medicine Critical Care Medicine
DX: J90 Pleural effusion, not elsewhere classified (principal)
CPT/HCPCS: 76604

== ENCOUNTER → 2022-01-21 | Outpatient (CLI) | payer MEDICARE ==
--- NOTE | 2022-01-23 08:56 | PE ---
EXAMINATION TYPE: PET CT fusion skull to thigh DATE OF EXAM: 01/21/2022 CLINICAL INDICATION:Male, 86 years old with history of R91.8 Pleural mass; TECHNIQUE: Following the intravenous administration of 11.81 mCi of F-18 FDG, whole body images are performed from the skull base to the midthigh. Images are reviewed on the computer in the coronal, axial, and sagittal planes. Reconstructed rotating images are created on independent workstation and reviewed on the computer. A non-contrast CT is performed in conjunction with the PET scan. Glucose level 114 mg/dL COMPARISON: CT 09/06/2021, PET/CT None, FINDINGS: Mediastinal SUV mean is 1.0. Hepatic parenchyma SUV mean is 1.8. SKULL BASE AND NECK: No suspicious FDG activity. CHEST, MEDIASTINUM, AND HILAR REGION: No suspicious FDG activity. No evidence for pleural thickening or abnormal FDG activity within the pleural space ABDOMEN AND PELVIS: No suspicious FDG activity. OSSEOUS STRUCTURES: No suspicious FDG activity. OTHER CT: Atherosclerosis of the arterial vasculature. Right thyroid goiter measuring to 3.8 cm which does not demonstrate increased FDG activity. There is a large right pleural effusion. The gallbladde r is surgically absent. There R scattered hepatic cysts. Yady mesentery is present. Fat-containing b ilateral inguinal hernias are present. Few scattered clonic diverticula present. Multilevel disc dege neration changes throughout the spine. IMPRESSION: Right pleural effusion without evidence of pleural thickening or abnormal FDG activity. No evidence f or abnormal FDG activity.
== END | disposition home or self-care (01) ==
LOC: RADXRMAIN 14:03
PROVIDERS: ATTEND Internal Medicine Critical Care Medicine
DX: J90 Pleural effusion, not elsewhere classified (principal); R91.8 Other nonspecific abnormal finding of lung field
CPT/HCPCS: 78815; A9552

== ENCOUNTER → 2023-02-08 | Outpatient (CLI) | payer MEDICARE ==
--- NOTE | 2023-02-08 10:31 | US ---
EXAMINATION TYPE: US chest DATE OF EXAM: 02/08/2023 COMPARISON: NONE CLINICAL INDICATION: Male, 87 years old with history of J90 PLEURAL EFFUSION; right pleural effusion TECHNIQUE: Targeted ultrasound of the posterior lower right hemithorax EXAM MEASUREMENTS: Right Pleural Effusion pocket size: 5.5 cm Right skin surface to fluid distance: 3.7 cm Right side marked for possible thoracentesis outside the dept. Pulmonologists are able to review the images in the patient?s EMR. IMPRESSIONS: Moderate sized right pleural effusion with marking performed.
== END | disposition home or self-care (01) ==
LOC: RADUSWWP 09:37
PROVIDERS: ATTEND Internal Medicine Critical Care Medicine
DX: J90 Pleural effusion, not elsewhere classified (principal)
CPT/HCPCS: 76604